=== PATIENT | male | born 1950 | race Caucasian/White ===

== ENCOUNTER → 2016-05-28 | Outpatient (CLI) | payer MEDICARE ==
--- NOTE | ~2016-05-28 | ECH ---
Transthoracic Echocardiography Report (TTE) Demographics Patient Name DAKSHA BEAR Date of Study 05/28/2016 J Patient Number [id number] Visit Number [id number] Date of 1950 Room Number Accession Number [id number] Gender Male Age 65 year(s) Referring Alek Farris [facility] Business Office Specialist [place] [facility] Physician Franco Mcmillan MD Physician Interpreting [facility] Pie Topper Physician MD Supervising Ordering Physician Franco Mcmillan MD/MLP Nurse Stress Customer Counter Associate Conclusions Summary Technically adequate exam. The estimated left ventricular ejection fraction is 50-55%. Moderate left ventricular hypertrophy. The interventricular septum is mildly flattened and dyskinetic. Mildly reduced right ventricular function with mildly dilated right ventricle. The left atrium is mildly dilated by LA volume index measurement. Bubble study was done, a few bubbles crossed late into the left atrium. No definitive evidence of shunt. The right atrium is mildly dilated. The patient is known to have a #29 [employer] bioprosthetic mitral valve with a mean gradient of 3.5mmHg. Mild mitral regurgitation by color Doppler. Known to have tricuspid valve repair with #32 [employer] with normal function. Moderate tricuspid regurgitation by color Doppler. There is severe pulmonary hypertension. The pulmonary pressure (RVSP) is 66 mmHg. Procedure Type of Study TTE procedure:Echo Complete SF. Procedure Date Date: 05/28/2016 Start: 12:11 PM Technical Quality: Adequate visualization Indications:Pulmonary hypertension. Additional Indications:MVR, Appropriate Use Criteria: 8 Contrast Medium: Bubble Study. Height: 71 inches Weight: 143 pounds BSA: 1.83 m Rhythm: Paced HR: 70 bpm BP: 145/94 mmHg M-Mode/2D Measurements LV Diastolic Dimension: 4.66 cm LV Systolic Dimension: 3.88 cm LV Septum Diastolic: 1.41 cm LV PW Diastolic: 1.56 cm AO Root Dimension: 3.1 cm Cardiac Output: 2.65 l/min LA Dimension: 3.81 cm Cardiac Index: 1.45 l/min*m RV Diastolic Dimension: 3 cm LA volume index: 38 ml/m LVOT: 1.95 cm LVOT VTI: 12.68 cm RV Base: 4.6 cm LV Stroke volume: 37.85 ml RV Mid: 4.4 cm LV Stroke volume index: 20.68 ml/m RV Length: 7.6 cm TAPSE: 1.14 cm TDI-S': 7 cm/s Doppler Measurements AV Mean Gradient: 2.67 mmHg MV Peak E-Wave: 1.3 m/s LVOT Peak Velocity: 0.72 m/s MV Peak A-Wave: 1.19 m/s AV Area (Continuity):2 cm MV P1/2t: 48.8 msec TR Velocity:3.81 m/s MV Mean Gradient: 3.5 mmHg TR Gradient:58.17 mmHg Estimated RAP:8 mmHg MV Deceleration Time: 228.8 msec Estimated RVSP: 66 mmHg MV Area (PHT): 4.51 cm PV Peak Velocity: 0.87 m/s PV Peak Gradient: 3.05 mmHg RA Area: 21 cm Findings Left Ventricle The left ventricle is normal in size . Moderate left ventricular hypertrophy. The interventricular septum is flattened which is consistent with right ventricular pressure / and or volume overload. Diastolic assessment reveals Grade II pseudonormal diastolic function . Right Ventricle Mildly reduced right ventricular function. Mildly dilated right ventricle. Device lead noted in the right ventricle. Left Atrium The left atrium is mildly dilated by LA volume index measurement. Bubble study was done, bubbles crossed late into the left atrium. Right Atrium Device lead seen in the right atrium. The right atrium is mildly dilated. Mitral Valve The patient is known to have a #29 [employer] bioprosthetic mitral valve with a mean gradient of 3.5mmHg. Mild mitral regurgitation by color Doppler. Aortic Valve Normal aortic valve structure and function. There is no aortic regurgitation by color Doppler. Tricuspid Valve Known to have tricuspid valve repair with #32 [employer] with normal function. Moderate tricuspid regurgitation by color Doppler. There is severe pulmonary hypertension. The pulmonary pressure (RVSP) is 66 mmHg. Pulmonic Valve The pulmonic valve is not well visualized. Pericardial Effusion No evidence of pericardial effusion. Miscellaneous Visualized portions of the aortic root and ascending aorta appear normal in size. Pleural Effusion No evidence of pleural effusion. Contractility Score LV regional wall motion:(0-Non visualized 1-Normal 2-Hypokinesis 3-Akinesis 4-Dyskinesis 5-Aneurysm) Signature
== END | disposition home or self-care (01) ==
LOC: CARD 11:56 → RAD.S 14:00 → PTH.S 03-14 23:00 → CARD 03-14 23:00
DX: I27.2 Other secondary pulmonary hypertension (principal); R91.8 Other nonspecific abnormal finding of lung field; I08.1 Rheumatic disorders of both mitral and tricuspid valves; Z98.890 Other specified postprocedural states

== ENCOUNTER → 2016-06-15 | Outpatient (CLI) | payer MEDICARE | END | disposition home or self-care (01) | LOC: RAD.S 15:06 | DX: H53.8 Other visual disturbances (principal); R53.1 Weakness; J32.0 Chronic maxillary sinusitis ==

== ENCOUNTER → 2016-07-26 | Outpatient (CLI) | payer MEDICARE | END | disposition home or self-care (01) | LOC: RAD.S 08:43 | DX: R09.02 Hypoxemia (principal); J98.4 Other disorders of lung ==

== ENCOUNTER 2016-12-05 16:15 | Emergency (ER) | payer MEDICARE, OTHER ==
--- NOTE | 2016-12-06 23:41 | ER ---
ADMIT: 12/05/2016 RM/LOC: [facility] MR#: [id number] [address] [address] DAKSHA BEAR [address] [place] [address] Emergency Room Report SEX: M AGE: 66 : 1950 DATE: 12/05/2016 TIME: 1615 hours. Please refer to my T-sheet for complete H and P. HISTORY OF PRESENT ILLNESS: Briefly, the patient is a 66-year-old comes in with 10-pound weight loss in the last 2 days and diarrhea. He has a known history of a G-tube from scleroderma, feeds himself, says he has just been running through, no pain, but he just feels like he is getting dehydrated. PHYSICAL EXAMINATION: VITAL SIGNS: Stable. HEENT: Grossly normal. ABDOMEN: Soft, really nontender. No rebound or guarding. SKIN: No rash. EMERGENCY DEPARTMENT COURSE: I gave him a liter of normal saline bolus, Zofran 4 mg IV, Flagyl 500 mg p.o. We originally ordered stool studies, he could not give us a stool, so we are going to go him outpatient. CBC was normal except hemoglobin 11.3. Chemistries normal except CO2 of 20, BUN 50, glucose 205, creatinine 1.4. UA was normal. ASSESSMENT: 1. Diarrhea. 2. Mild dehydration. 3. Weight loss. PLAN: Flagyl 500 mg t.i.d. for 7 days. Follow up with primary this week. Outpatient stool studies. Return if worse. Ubaldo Hooks MD/ diogenes JOB #: [id number] CC: Darvin Hassan MD, Attending Physician Margarette Bertrand MD, Family Physician
== END 2016-12-05 18:45 | disposition home or self-care (01) ==
LOC: ER 16:15
DX: E86.0 Dehydration (principal); R19.7 Diarrhea, unspecified; R63.4 Abnormal weight loss; I10 Essential (primary) hypertension; K21.9 Gastro-esophageal reflux disease without esophagitis; Z90.49 Acquired absence of other specified parts of digestive tract; Z88.5 Allergy status to narcotic agent; Z79.899 Other long term (current) drug therapy